=== PATIENT | male | born 1955 | race Caucasian/White ===

== ENCOUNTER → 2021-02-24 08:45 | Outpatient (CLI) | payer MEDICARE, BC, SELFPAY ==
[2021-02-12 10:29] VITALS: BMI 29.7
--- NOTE | 2021-02-24 08:47 | ECHOD_ITS ---
Reason For Study: VALVE REPLACEMENT EVAL Procedure This was a 2D Doppler, Color Flow transthoracic echocardiogram. Exam performed in department. Left Ventricle Normal LV size. Moderate concentric left ventricular hypertrophy. The estimated ejection fraction is 50 %. Stage 1 diastolic dysfunction. No regional wall motion abnormalities noted. Right Ventricle Normal RV size. ICD or pacer leads identified within the right ventricle. Normal systolic function. Atria Normal left atrium. Normal right atrium. Mitral Valve Normal mitral valve. Tricuspid Valve Normal tricuspid valve. Mild tricuspid valve insufficiency. Pulmonary artery systolic pressure is 25 mmHg. Aortic Valve Peak aortic valve gradient 21 mmHg. Mean aortic valve gradient 12 mmHg. Mild aortic stenosis. Bioprosthetic aortic valve. Pulmonic Valve Normal pulmonic valve. Great Vessels Prosthetic aorta. The pulmonary artery is normal size. Normal inferior vena cava. Pericardium/Pleural No pericardial effusion. MMode/2D Measurements & Calculations LVIDd: 4.8 cm IVSd: 1.5 cm LVOT diam: 2.0 cm LVIDs: 2.8 cm LVPWd: 1.4 cm LVOT area: 3.2 cm2 RVDd: 3.1 cm FS: 41.6 % Ao root diam: 3.3 cm LAV(MOD-bp): 47.0 ml LA A4 area: 17.2 cm2 LAV(MOD-bp) Indexed: 20.3 ml/m2 LAV(MOD-sp2): 42.7 ml LAV(MOD-sp4): 43.6 ml LA dimension(2D): 4.4 cm RA A4 area: 15.0 cm2 Time Measurements MV dec time: 0.22 sec Doppler Measurements & Calculations MV E max fuentes: 66.2 cm/sec Lat Peak E' Fuentes: 6.9 cm/sec Med Peak E' Fuentes: 5.0 cm/sec MV A max fuentes: 84.6 cm/sec E/E' lat: 9.6 E/E' med: 13.2 MV E/A: 0.78 Ao V2 max: 229.9 cm/sec LV V1 max: 122.3 cm/sec SV(LVOT): 82.3 ml Ao max P.2 mmHg LV V1 max P.0 mmHg Ao V2 mean: 172.4 cm/sec LV V1 mean P.4 mmHg Ao mean P.7 mmHg LV V1 mean: 88.0 cm/sec Ao V2 VTI: 48.4 cm LV V1 VTI: 25.9 cm SOPHIA(I,D): 1.7 cm2 SOPHIA(V,D): 1.7 cm2 PA V2 max: 104.6 cm/sec TR max fuentes: 218.9 cm/sec TR max P.2 mmHg ECHO/Echo Complete Interpretation Summary Normal LV size. Moderate concentric left ventricular hypertrophy. The estimated ejection fraction is 50 %. Stage 1 diastolic dysfunction. Prosthetic aorta Ordering Physician: Allen Garrison Referring Physician: Yann Lovett Performed By: Sunni Cline, DONOVAN, RVT
== END ==
PROVIDERS: PCP Family Medicine; Referring Provider Internal Medicine Cardiovascular Disease; Visit Provider Internal Medicine Cardiovascular Disease
DX: Z95.2 Presence of prosthetic heart valve (principal)
CPT/HCPCS: 93306

== ENCOUNTER → 2022-10-19 | Outpatient (CLI) | payer MEDICARE, BC, SELFPAY ==
--- NOTE | 2022-10-19 12:42 | ECHOD_ITS ---
Version 2 Reason For Study: VALVE REPLACEMENT EVAL Procedure This was a 2D Doppler, Color Flow transthoracic echocardiogram. Exam performed in department. Left Ventricle Normal LV size. Moderate concentric left ventricular hypertrophy. Left ventricular systolic function is normal. The estimated ejection fraction is 55 %. Stage 1 diastolic dysfunction. Right Ventricle Normal RV size. ICD or pacer leads identified within the right ventricle. Normal systolic function. Atria Normal left atrium. Normal right atrium. Aortic Valve Bioprosthetic aortic valve. Great Vessels Normal aortic root. Pericardium/Pleural No pericardial effusion. MMode/2D Measurements & Calculations LVIDd: 5.4 cm IVSd: 1.5 cm LVOT diam: 2.0 cm LVIDs: 3.7 cm LVPWd: 1.4 cm RVDd: 3.2 cm FS: 30.5 % LVOT area: 3.2 cm2 Ao root diam: 3.2 cm LAV(MOD-bp): 62.0 ml LA A4 area: 20.0 cm2 LAV(MOD-bp) Indexed: 26.6 ml/m2 LAV(MOD-sp2): 57.3 ml LAV(MOD-sp4): 57.3 ml LA dimension(2D): 4.7 cm RA A4 area: 16.1 cm2 Time Measurements MV dec time: 0.27 sec Doppler Measurements & Calculations MV E max fuentes: 45.5 cm/sec Lat Peak E' Fuentes: 10.5 cm/sec Med Peak E' Fuentes: 6.2 cm/sec MV A max fuentes: 61.2 cm/sec E/E' lat: 4.3 E/E' med: 7.3 MV E/A: 0.74 Ao V2 max: 236.6 cm/sec LV V1 max: 131.0 cm/sec MV dec slope: 169.5 cm/sec2 Ao max P.4 mmHg LV V1 max P.9 mmHg Ao V2 mean: 167.5 cm/sec LV V1 mean P.7 mmHg Ao mean P.6 mmHg LV V1 mean: 92.1 cm/sec Ao V2 VTI: 47.5 cm LV V1 VTI: 25.9 cm AV (velocity ratio): 0.55 SOPHIA(I,D): 1.8 cm2 SOPHIA(V,D): 1.8 cm2 SV(LVOT): 83.9 ml PA V2 max: 108.3 cm/sec ECHO/Echo Complete Interpretation Summary Normal LV size. Moderate concentric left ventricular hypertrophy. Left ventricular systolic function is normal. The estimated ejection fraction is 55 %. Stage 1 diastolic dysfunction. Bioprosthetic aortic valve. Ordering Physician: Allen Garrison Referring Physician: Yann Lovett Performed By: Sunni Cline, DONOVAN, RVT
== END | disposition home or self-care (01) ==
LOC: CVS 12:40
PROVIDERS: PCP Family Medicine; Referring Provider Internal Medicine Cardiovascular Disease; Visit Provider Internal Medicine Cardiovascular Disease
DX: I35.1 Nonrheumatic aortic (valve) insufficiency (principal)
CPT/HCPCS: 93306

== ENCOUNTER → 2023-11-13 | Outpatient (CLI) | payer MEDICARE, BC, SELFPAY ==
--- NOTE | 2023-11-13 12:58 | ECHOD_ITS ---
Version 2 Reason For Study: AVR Procedure This was a 2D Doppler, Color Flow transthoracic echocardiogram. Exam performed in department. Left Ventricle Normal LV size. Moderate concentric left ventricular hypertrophy. Left ventricular systolic function is normal. The estimated ejection fraction is 55 %. Stage 1 diastolic dysfunction. No regional wall motion abnormalities noted. Right Ventricle Normal RV size. Normal systolic function. Atria Normal left atrium. Normal right atrium. Mitral Valve Normal mitral valve. Tricuspid Valve Normal tricuspid valve. Mild tricuspid valve insufficiency. Aortic Valve Peak aortic valve gradient 24 mmHg. Mean aortic valve gradient 12 mmHg. Stable appearing mechanical aortic valve apparatus. Pulmonic Valve Normal pulmonic valve. Great Vessels Normal aortic root. The pulmonary artery is normal size. Normal inferior vena cava. Pericardium/Pleural No pericardial effusion. MMode/2D Measurements & Calculations LVIDd: 4.6 cm IVSd: 1.4 cm LVOT diam: 2.0 cm LVIDs: 2.9 cm LVPWd: 1.4 cm LVOT area: 3.0 cm2 RVDd: 3.2 cm FS: 35.5 % Ao root diam: 3.1 cm LAV(MOD-bp): 41.3 ml LVAd ap4: 30.3 cm2 LAV(MOD-bp) Indexed: 17.5 ml/m2 LVLd ap4: 8.3 cm LAV(MOD-sp2): 35.1 ml EDV(MOD-sp4): 97.1 ml LAV(MOD-sp4): 46.3 ml EDV(sp4-el): 94.4 ml LVAs ap4: 19.2 cm2 LVLs ap4: 7.5 cm ESV(MOD-sp4): 46.3 ml ESV(sp4-el): 41.9 ml EF(MOD-sp4): 52.3 % EF(sp4-el): 55.7 % LVAd ap2: 30.4 cm2 SV(MOD-sp4): 50.7 ml SV(MOD-sp2): 50.7 ml LVLd ap2: 8.7 cm EDV(MOD-sp2): 90.3 ml EDV(sp2-el): 90.5 ml LVAs ap2: 18.1 cm2 LVLs ap2: 7.5 cm ESV(MOD-sp2): 39.6 ml ESV(sp2-el): 37.2 ml EF(MOD-sp2): 56.2 % SV(sp4-el): 52.5 ml LA dimension(2D): 4.6 cm LA A4 area: 16.7 cm2 RA A4 area: 13.8 cm2 Time Measurements MV dec time: 0.26 sec Doppler Measurements & Calculations MV E max fuentes: 47.8 cm/sec Lat Peak E' Fuentes: 9.1 cm/sec Med Peak E' Fuentes: 6.3 cm/sec MV A max fuentes: 68.2 cm/sec E/E' lat: 5.3 E/E' med: 7.6 MV E/A: 0.70 Ao V2 max: 246.8 cm/sec LV V1 max: 128.3 cm/sec MV dec slope: 180.8 cm/sec2 Ao max P.4 mmHg LV V1 max P.6 mmHg Ao V2 mean: 166.5 cm/sec LV V1 mean P.0 mmHg Ao mean P.4 mmHg LV V1 mean: 80.5 cm/sec Ao V2 VTI: 43.4 cm LV V1 VTI: 24.3 cm AV (velocity ratio): 0.56 SOPHIA(I,D): 1.7 cm2 SOPHIA(V,D): 1.6 cm2 SV(LVOT): 72.6 ml PA V2 max: 128.1 cm/sec TR max fuentes: 219.4 cm/sec PA V2 mean: 77.8 cm/sec TR max P.3 mmHg ECHO/Echo Complete Interpretation Summary Normal LV size. Moderate concentric left ventricular hypertrophy. Left ventricular systolic function is normal. The estimated ejection fraction is 55 %. Stage 1 diastolic dysfunction. Stable appearing mechanical aortic valve apparatus. Mean aortic valve gradient 12 mmHg. Compared to the previous echo the gradient across the aortic valve is unchanged Ordering Physician: Yelena Abreu Referring Physician: Yann Lovett Performed By: Leilani Knapp RDCS
== END | disposition home or self-care (01) ==
PROVIDERS: PCP Family Medicine; Referring Provider Physician Assistant Medical; Visit Provider Physician Assistant Medical
DX: I35.1 Nonrheumatic aortic (valve) insufficiency (principal)
CPT/HCPCS: 93306